=== PATIENT | female | born 1990 | race Caucasian/White ===

== ENCOUNTER 2018-04-15 11:25 | Emergency (ER) | payer OTHER ==
[~2018-04-15] VITALS: Ht 165.1 cm; Wt 66.7 kg
[2018-04-15 11:35] VITALS: BP 112/74
[2018-04-15 12:24] LABS: MICROSCOPIC AUTO
[2018-04-15 12:26] LABS: CULTURE INDICATED? YES
== END 2018-04-15 12:52 | disposition home or self-care (01) ==
LOC: ED 12:00
DX: N39.0 Urinary tract infection, site not specified (principal); N10 Acute pyelonephritis; F98.8 Other specified behavioral and emotional disorders with onset usually occurring in childhood and adolescence
CPT/HCPCS: 81001; 81025; 87086; 99284